=== PATIENT | female | born 1955 | race Caucasian/White ===

== ENCOUNTER → 2023-05-07 | Day surgery (SDC) | payer MEDICARE ==
[~2023-05-07] VITALS: Ht 154.9 cm; Wt 80.1 kg
[~2023-05-07] MED LIST: BSS IRRIG/VANCO(10MG)/TOBRA(5MG)/EPINEPH(1:1000-0.5CC)500ML BAG-ORONLY IR ONE; CEFUROXIME 1MG/0.1ML INTRACAMERAL INJ As Ordered ONE; CYCLOPENTOLATE 1% OPHTH SOLN 2ML BTL OD SCH; FERR325T3 PO; LIDOCAINE 1% SDV 5ML VIAL As Ordered ONE; LIDOCAINE 3.5 % 1ML OPHTH TOPICAL GEL OU ONE; MIDAZOLAM INJ 2MG/2ML VIAL As Ordered ONE; OFLOXACIN 0.3 % (OCUFLOX) OPTH SOL 5ML OD ONE; PHENYLEPHRINE 10% OPHTH SOL 5ML OD PRN; PHENYLEPHRINE 2.5% OPHTH SOL 2ML OD SCH; TROPICAMIDE 1% OPHTH SOLN 15ML OD SCH; fentaNYL 100 MCG/2 ML INJECTION As Ordered ONE
[2023-05-07 09:27] VITALS: BP 150/72; TEMP 97.3; O2SAT 97
== END | disposition home or self-care (01) ==
LOC: M SDC 07:39
PROVIDERS: ATTEND Ophthalmology
DX: H25.11 Age-related nuclear cataract, right eye (principal); Z79.899 Other long term (current) drug therapy
CPT/HCPCS: 66984; 92015; J0697; J2250; J3010; V2788

== ENCOUNTER 2023-05-14 06:20 | Day surgery (SDC) | payer MEDICARE ==
[~2023-05-14] VITALS: Ht 154.9 cm; Wt 79.6 kg
[~2023-05-14 06:20] MED LIST changes: -CEFUROXIME 1MG/0.1ML INTRACAMERAL INJ As Ordered ONE; -CYCLOPENTOLATE 1% OPHTH SOLN 2ML BTL OD SCH; +CYCLOPENTOLATE 1% OPHTH SOLN 2ML BTL OS SCH; -LIDOCAINE 1% SDV 5ML VIAL As Ordered ONE; -MIDAZOLAM INJ 2MG/2ML VIAL As Ordered ONE; -OFLOXACIN 0.3 % (OCUFLOX) OPTH SOL 5ML OD ONE; +OFLOXACIN 0.3 % (OCUFLOX) OPTH SOL 5ML OS ONE; -PHENYLEPHRINE 10% OPHTH SOL 5ML OD PRN; +PHENYLEPHRINE 10% OPHTH SOL 5ML OS PRN; -PHENYLEPHRINE 2.5% OPHTH SOL 2ML OD SCH; +PHENYLEPHRINE 2.5% OPHTH SOL 2ML OS SCH; -TROPICAMIDE 1% OPHTH SOLN 15ML OD SCH; +TROPICAMIDE 1% OPHTH SOLN 15ML OS SCH; -fentaNYL 100 MCG/2 ML INJECTION As Ordered ONE
[2023-05-14] MEDS ORDERED: MIDAZOLAM INJ 2MG/2ML VIAL As Ordered ONE (07:08)
[2023-05-14] MEDS ORDERED: fentaNYL 100 MCG/2 ML INJECTION As Ordered ONE (07:08)
[2023-05-14] MEDS ORDERED: LIDOCAINE 1% SDV 5ML VIAL As Ordered ONE (07:30)
[2023-05-14] MEDS ORDERED: DUOVISC (0.50ML VISCOAT/0.85ML PROVISC) OPHTH KIT As Ordered ONE (07:30)
[2023-05-14] MEDS ORDERED: CEFUROXIME 1MG/0.1ML INTRACAMERAL INJ As Ordered ONE (07:31)
[2023-05-14 09:02] VITALS: BP 166/72; TEMP 98.8; O2SAT 98
== END 2023-05-14 09:04 | disposition home or self-care (01) ==
LOC: M SDC 06:20
PROVIDERS: ATTEND Ophthalmology
DX: H25.12 Age-related nuclear cataract, left eye (principal)
CPT/HCPCS: 66984; 92015; J0697; J2250; J3010; V2788